=== PATIENT | male | born 1960 | race Caucasian/White ===

== ENCOUNTER 2017-01-31 16:04 | Emergency (ER) | payer OTHER, MEDICARE ==
[~2017-01-31] VITALS: Ht 180.3 cm; Wt 92.5 kg
--- NOTE | 2017-01-31 16:24 | ED PSYCHIATRIC COMPLAINT ---
History of Present Illness General Chief Complaint: ETOH/Drug Related Complaint Stated Complaint: ETOH Source: patient, EMS Exam Limitations: intoxication Vital Signs & Intake/Output Vital Signs & Intake/Output Vital Signs Date Time Temp Pulse Resp B/P B/P Pulse O2 O2 Flow FiO2 Mean Ox Delivery Rate 01/31 1618 97.8 85 18 166/110 99 Room Air Allergies Coded Allergies: animal dander (SNEEZING, EYES ITCH AND WATER 01/31/17) Reconcile Medications Albuterol Sulfate (Proventil Hfa) 90 MCG HFA.AER.AD 2 PUF INH PRN ASTHMA ( Reported) Atorvastatin Calcium (Lipitor) 80 MG TABLET 1 TAB PO DAILY CHOLESTEROL ( Reported) Budesonide/Formoterol Fumarate (Symbicort 160-4.5 Mcg Inhaler) 160 MCG-4.5 MCG/ ACTUATION HFA.AER.AD 2 PUF INH BID ASTHMA (Reported) Escitalopram Oxalate 20 MG TABLET 1 TAB PO DAILY MENTAL HEALTH (Reported) Fluticasone/Salmeterol (Advair 250-50 Diskus) 250 MCG-50 MCG/DOSE BLST.W.DEV 1 PUF INH BID ASTHMA (Reported) Gabapentin 300 MG CAPSULE 1 CAP PO BID RLS (Reported) Lisinopril/Hydrochlorothiazide (Lisinopril-Hctz 10-12.5 MG Tab) 10 MG-12.5 MG TABLET 1 TAB PO DAILY BP (Reported) Metoprolol Tartrate 25 MG TABLET 1 TAB PO BID HEART/BP (Reported) Montelukast Sodium 10 MG TABLET 1 TAB PO DAILY ALLERGIES (Reported) Pregabalin (Lyrica) 100 MG CAPSULE 1 CAP PO TID NEUROPATHY (Reported) Testosterone (Androgel) (Unknown Strength) GEL.PACKET 1 PAC TOP DAILY HRT ( Reported) Tofacitinib Citrate (Xeljanz) 5 MG TABLET 1 TAB PO BID RA (Reported) Triage Note: PT BIBA AFTER BEING FOUND SLEEPING ON THE SIDE OF THE ROAD. PT ADMITS TO ETOH USE, IS HERE VOLUNTARILY. PT DENIES SI/HI, DOES NOT WANT DETOX AT THIS TIME. Triage Nurses Notes Reviewed? yes Onset: Abrupt Duration: minute(s): (FEW) Timing: single episode today Severity: mild, moderate HPI: This is a 56-year-old male brought in by ambulance found with public intoxication. Patient states he drank 340 ounces today after getting out of his meeting with [employer]. He states he is not anxious, suicidal or homicidal. He wants to go home but he is intoxicated at this point. Patient states he does not have a sober ride. He does not drink everyday. Denies any illicit drug use. He does not want to speak to one of our crisis workers as he is doing okay. (FRANCISCO CASANOVA MD) Past History Travel History Traveled to [place] past 21 day No Medical History Any Pertinent Medical History? see below for history Psychiatric: anxiety, ALCOHOL ABUSE Surgical History Surgical History: non-contributory Psychosocial History What is your primary language Faroese Tobacco Use: Current Daily Use Daily Tobacco Use Amount/Type: => 5 Cigarettes daily ETOH Use: heavy use Family History Hx Contributory? No (FRANCISCO CASANOVA MD) Review of Systems Review of Systems Constitutional: Denies: fever. EENTM: Reports: no symptoms. Respiratory: Reports: no symptoms. Cardiovascular: Denies: chest pain. GI: Denies: see HPI. Genitourinary: Reports: no symptoms. Musculoskeletal: Reports: no symptoms. Skin: Reports: no symptoms. Neurological/Psychological: Denies: anxiety, depressed. Hematologic/Endocrine: Reports: no symptoms. Immunologic/Allergic: Reports: no symptoms. All Other Systems: Reviewed and Negative (FRANCISCO CASANOVA MD) Physical Exam Physical Exam General Appearance: well developed/nourished, awake, anxious, mild distress, intoxicated Head: atraumatic Eyes: Bilateral: PERRL, EOMI. Ears, Nose, Throat: normal pharynx, normal ENT inspection, hearing grossly normal Neck: normal inspection, supple Respiratory: normal breath sounds Cardiovascular: regular rate/rhythm Gastrointestinal: soft, non-tender Extremities: normal range of motion Neurological/Psychiatric: no motor/sensory deficits, awake, alert, calm Appearance/Memory/Insight: disheveled Behavoir/Eye Contact/Speech: decreased rate of speech Skin: intact, normal color, warm/dry SAD PERSONS Done? patient not suicidal (FRANCISCO CASANOVA MD) Progress Differential Diagnosis: ALCOHOL INTOXICATION Plan of Care: Current Medications Sig/Jay Start time Last Medication Dose Stop Time Status Admin Acetaminophen 650 MG ONCE ONE 01/31 1915 UNVr (Tylenol) 02/01 1916 Hand-Off Endorsed To: VICK BOJORQUEZ MD Endorsed Time: 1907 Pending: other (REEVALUATION/SOBRIETY) (TERRENCE DOMÍNGUEZ,FRANCISCO) Comments: 01/31/2017 10:48:42 PM patient signed out to me by Dr. Casanova at shift manager of change. The patient is now clinically sober and his breathalyzer confirms sobriety. I feel he is stable for discharge. Patient declined any further evaluation and treatment in the emergency department. (CARINA DOMÍNGUEZ,VICK Littlejohn) Departure Departure Condition: Stable Referrals: ANTHONY DOMÍNGUEZ,YURI Tucker (PCP) Departure Forms: Customer Survey General Discharge Information (TERRENCE DOMÍNGUEZ,FRANCISCO) Departure Disposition: HOME OR SELF CARE Clinical Impression Primary Impression: Alcohol intoxication Qualifiers: Complication of substance-induced condition: uncomplicated Qualified Code: F10.920 - Alcohol use, unspecified with intoxication, uncomplicated Additional Instructions: Cut down on your alcohol use. Follow-up with your primary care physician this week for general medical evaluation. Return if any concerns or sudden worsening. Thank you for choosing the [facility] Emergency Department for your care. It was a pleasure to serve you today. Vick Bojorquez M.D. [facility] (CARINA DOMÍNGUEZ,VICK Littlejohn)
[2017-01-31] MEDS ORDERED: PROVENTIL HFA6.7 GM INH (16:35)
[2017-01-31] MEDS ORDERED: MONTELUKAST SOD10 M1 PO (16:35)
[2017-01-31] MEDS ORDERED: LISINOPRIL-HCT1 EAC2 PO (16:36)
[2017-01-31] MEDS ORDERED: METOPROLOL TART25 M1 PO (16:36)
[2017-01-31] MEDS ORDERED: LIPITOR80 M1 PO (16:37)
[2017-01-31] MEDS ORDERED: SYMBICORT 16010.2 GM INH (16:37)
[2017-01-31] MEDS ORDERED: GABAPENTIN300 M2 PO (16:37)
[2017-01-31] MEDS ORDERED: ESCITALOPRAM OX20 MG PO (16:37)
[2017-01-31] MEDS ORDERED: XELJANZ5 M1 PO (16:37)
[2017-01-31] MEDS ORDERED: ADVAIR 250-501 EACH INH (16:38)
[2017-01-31] MEDS ORDERED: ANDROGEL5 GM TOP (16:41)
[2017-01-31] MEDS ORDERED: LYRICA100 M1 PO (16:41)
[2017-01-31 23:06] VITALS: BP 157/98
== END 2017-01-31 23:07 ==
LOC: ERH 16:04
DX: F10.129 Alcohol abuse with intoxication, unspecified (principal)

== ENCOUNTER 2017-03-01 12:35 | Emergency (ER) | payer OTHER, MEDICARE ==
[~2017-03-01] VITALS: Ht 180.3 cm; Wt 91.6 kg
[~2017-03-01 12:35] MED LIST: ADVAIR 250-501 EACH INH; ANDROGEL5 GM TOP; ESCITALOPRAM OX20 MG PO; GABAPENTIN300 M2 PO; LIPITOR80 M1 PO; LISINOPRIL-HCT1 EAC2 PO; LYRICA100 M1 PO; METOPROLOL TART25 M1 PO; MONTELUKAST SOD10 M1 PO; PROVENTIL HFA6.7 GM INH; SYMBICORT 16010.2 GM INH; XELJANZ5 M1 PO
--- NOTE | 2017-03-01 12:58 | ED GENERAL ADULT ---
History of Present Illness General Chief Complaint: General Adult Stated Complaint: HIGH BP Source: patient Exam Limitations: no limitations Vital Signs & Intake/Output Vital Signs & Intake/Output ED Intake and Output 03/02 0000 03/01 1200 Intake Total 0 Output Total Balance 0 Intake, Oral 0 Patient 202 lb Weight Weight Reported by Patient Measurement Method Allergies Coded Allergies: animal dander (SNEEZING, EYES ITCH AND WATER 01/31/17) Reconcile Medications Albuterol Sulfate (Proventil Hfa) 90 MCG HFA.AER.AD 2 PUF INH PRN ASTHMA ( Reported) Atorvastatin Calcium (Lipitor) 80 MG TABLET 1 TAB PO DAILY CHOLESTEROL ( Reported) Budesonide/Formoterol Fumarate (Symbicort 160-4.5 Mcg Inhaler) 160 MCG-4.5 MCG/ ACTUATION HFA.AER.AD 2 PUF INH BID ASTHMA (Reported) Escitalopram Oxalate 20 MG TABLET 1 TAB PO DAILY MENTAL HEALTH (Reported) Etodolac 300 MG CAPSULE 1 TAB PO BID UNKNOWN (Reported) Fluticasone/Salmeterol (Advair 250-50 Diskus) 250 MCG-50 MCG/DOSE BLST.W.DEV 1 PUF INH BID ASTHMA (Reported) Gabapentin 300 MG CAPSULE 1 CAP PO BID PRN RESTLESS LEGS (Reported) Lisinopril 10 MG TABLET 1 TAB PO DAILY HTN Lisinopril/Hydrochlorothiazide (Lisinopril-Hctz 10-12.5 MG Tab) 10 MG-12.5 MG TABLET 1 TAB PO DAILY BP (Reported) Metoprolol Succinate 25 MG TAB 1 TAB PO BID HTN Metoprolol Tartrate 25 MG TABLET 1 TAB PO BID HEART/BP (Reported) Montelukast Sodium 10 MG TABLET 1 TAB PO DAILY ALLERGIES (Reported) Pregabalin (Lyrica) 100 MG CAPSULE 1 CAP PO TID NEUROPATHY (Reported) Testosterone (Androgel) (Unknown Strength) GEL.PACKET 1 PAC TOP DAILY HRT ( Reported) Tofacitinib Citrate (Xeljanz) 5 MG TABLET 1 TAB PO BID RA (Reported) Triage Note: PT SIB [facility] FOR DIZZINESS AND HTN, PT REPORTING HE HAS BEEN FEELING DIZZY FOR TWO MONTHS, HAS HAD AN MRI AND F/U WITH NEURO AND "THEY SAID ITS NOTHING" HTN IN TRIAGE AT 169/100, REPORTING HE IS SUPPOSED TO TAKE LISINOPRIL "BUT I HAVEN'T TAKEN IT IN OVER A YEAR" DENIES CP, SOB, CARREON. Triage Nurses Notes Reviewed? yes Onset: Gradual Duration: FEW MONTHS Timing: recent history Injury Environment: home Severity: mild Associated Symptoms: DIZZINESS, OCCASIONAL SHORTNESS OF BREATH WITH EXERTION HPI: This is a very nice 56-year-old male with history of hypertension, dyslipidemia, previous ME, asthma who presents to the ER for chief complaint of dizziness. Patient's blood pressure has been running high and today when he went to see Dr. Gómez after 4 years found to be hypertensive with a systolic over 180. Patient denies any chest pain or shortness of breath at this time. He has been trying to get back to seeing all the primary doctors after several years of not taking care of himself. He states he went for a period of depression after losing his house, he was left him as well as his son was dealing with drug issues and stopped taking his regular medications. He has not taken his blood pressure medications in over one year. He used to take lisinopril, metoprolol and possibly hydrochlorothiazide. He states he is due to see a client architect at the end of this week as well. States that he gets short of breath while walking his eye or climbing stairs. No shortness of breath at rest. Any history of smoking. States he drinks once per month. Denies any illicit drug use. Past History Travel History Traveled to [place] past 21 day No Medical History Any Pertinent Medical History? see below for history Neurological: NONE EENT: SEASONAL ALLERGIES Cardiovascular: hypertension, myocardial infarction, HIGH CHOLESTEROL Respiratory: asthma Musculoskeletal: RHEUMATOID ARTHRITIS Psychiatric: anxiety, ALCOHOL ABUSE Surgical History Surgical History: LEFT INGUINAL HERNIA REPAIR, CARDIAC CATH - 2 ARTERIES BLOCKED , UNABLE TO BE STENTED Psychosocial History What is your primary language Liberian Tobacco Use: Never used ETOH Use: occasional use, heavy use, alcoholic Illicit Drug Use: denies illicit drug use Family History Hx Contributory? No Review of Systems Review of Systems Constitutional: Denies: chills, fever. EENTM: Denies: blurred vision. Respiratory: Reports: short of breath (WITH EXERTION). Denies: cough, sputum production. Cardiovascular: Denies: chest pain, palpitations, peripheral edema. GI: Denies: abdominal pain, diarrhea, nausea, vomiting. Genitourinary: Denies: discharge, dysuria. Musculoskeletal: Denies: back pain. Skin: Reports: no symptoms. Neurological/Psychological: Reports: see HPI (DIZZY). Denies: ataxia, confusion, headache, numbness, paresthesia. Hematologic/Endocrine: Denies: bruising, bleeding, polyuria, polydipsia. Immunologic/Allergic: Reports: no symptoms. All Other Systems: Reviewed and Negative Physical Exam Physical Exam General Appearance: well developed/nourished, alert, awake, anxious, mild distress Head: atraumatic, normal appearance Eyes: Bilateral: normal appearance, PERRL, EOMI. Ears, Nose, Throat: normal pharynx, normal ENT inspection, hearing grossly normal Neck: normal inspection, supple, full range of motion Respiratory: normal breath sounds, chest non-tender, no respiratory distress Cardiovascular: regular rate/rhythm Peripheral Pulses: 2+ radial (R), 2+ radial (L) Gastrointestinal: normal bowel sounds, soft, non-tender Back: normal inspection, normal range of motion Extremities: normal inspection, normal capillary refill, normal range of motion, no edema Neurologic/Psych: no motor/sensory deficits, awake, alert, oriented x 3, normal gait, normal mood/affect Skin: intact, normal color, warm/dry Core Measures ACS in differential dx? Yes ASA ordered for poss ACS? Yes-ordered CVA/TIA Diagnosis: No Severe Sepsis Present: No Septic Shock Present: No Progress Differential Diagnoses I considered the following diagnoses in my evaluation of the patient: [ UNCONTROLLED HTN, MEDICATION NON COMPLIANCE, DEPRESSION, ACS, UNSTABLE ANGINA, ASTHMA, ANXIETY] Plan of Care: Orders Procedure Date/time Status Heart Healthy Diet 03/01 D Active URINALYSIS 03/01 1305 Active TROPONIN LEVEL 03/01 1305 Complete COMPREHENSIVE METABOLIC PANEL 03/01 1305 Complete CBC WITHOUT DIFFERENTIAL 03/01 1305 Complete EKG 03/01 1258 Active Laboratory Tests 03/01/17 1314: Anion Gap 7, Estimated GFR > 60, BUN/Creatinine Ratio 21.3, Glucose 103 H, Calcium 9.4, Total Bilirubin 0.7, AST 19, ALT 35, Alkaline Phosphatase 117, Troponin I < 0.01, Total Protein 7.1, Albumin 4.2, Globulin 2.9, Albumin/ Globulin Ratio 1.4, CBC w Diff NO MAN DIFF REQ, RBC 5.45, MCV 87.1, MCH 29.8, RDW 13.8, MPV 6.6 L, Gran % 73.2, Lymphocytes % 16.9 L, Monocytes % 6.2, Eosinophils % 3.4, Basophils % 0.3, Absolute Granulocytes 4.7, Absolute Lymphocytes 1.1 L, Absolute Monocytes 0.4, Absolute Eosinophils 0.2, Absolute Basophils 0, PUBS MCHC 34.2 EKG, TELE MONITOR, LABS. ASPIRIN, LISINOPRIL ORDERED. NO CHEST PAIN TODAY. TROPONIN NEGATIVE, IMPROVED BLOOD PRESSURE. PATIENT ASYMPTOMATIC. PATIENT HAS APPOINTMENT WITH PCP TOMORROW AND WITH [employer] DEVELOPER ON MONDAY. WILL RETURN TO THE ER FOR ANY CHANGING OR WORSENING SYMPTOMS. (TERRENCE DOMÍNGUEZ,FRANCISCO) Initial ED EKG: NSR, LAD, INF Q Prior EKG: changed Departure Departure Time of Disposition: 1512 Disposition: HOME OR SELF CARE Condition: Stable Clinical Impression Primary Impression: Hypertension Referrals: ANTHONY DOMÍNGUEZ,YURI Tucker (PCP/Family) Additional Instructions: TAKE THE LISINOPRIL AND METOPROLOL DIRECTED AND FOLLOW UP WITH YOUR PCP APPOINTMENT TOMORROW AND YOUR CARDIOLOGY APPOINTMENT ON MONDAY. RETURN IF WORSE TO THE ER. Departure Forms: Customer Survey General Discharge Information Prescriptions: Current Visit Scripts Lisinopril 1 TAB PO DAILY #30 TAB Metoprolol Succinate 1 TAB PO BID #30 TAB Critical Care Note Critical Care Note Critical Care Time: non-applicable
[2017-03-01 13:21] LABS: ABSOLUTE BASOPHIL COUNT 0 /CUMM (0.0-0.2); ABSOLUTE EOSINOPHIL COUNT 0.2 /CUMM (0.0-0.7); ABSOLUTE GRANULOCYTE CT 4.7 /CUMM (1.4-6.5); ABSOLUTE LYMPH COUNT 1.1 /CUMM (1.2-3.4); ABSOLUTE MONOCYTE COUNT 0.4 /CUMM (0.10-0.60); BASOPHIL % 0.3 % (0.0-2.0); EOSINOPHIL % 3.4 % (0-5); GRANULOCYTE % 73.2 % (42.2-75.2); HEMATOCRIT 47.5 % (42-52); MEAN CORPUSCULAR HGB 29.8 PG (27.0-31.0); MEAN CORPUSCULAR HGB CONC 34.2 G/DL (33.0-37.0); MEAN CORPUSCULAR VOLUME 87.1 FL (80.0-94.0); MEAN PLATELET VOLUME 6.6 FL (7.4-10.4); PLATELET COUNT 272 /CUMM (130-400); RBC DISTRIBUTION WIDTH 13.8 % (11.5-14.5); RED BLOOD CELL CT 5.45 /CUMM (4.70-6.10); WHITE BLOOD CELL COUNT 6.4 /CUMM (4.8-10.8)
[2017-03-01] MEDS ORDERED: ETODOLAC300 M1 PO (14:04)
[2017-03-01 14:47] VITALS: BP 159/93
[2017-03-01] MEDS ORDERED: METOPROLOL SUCC25 M1 PO ×2 (15:15→15:16)
[2017-03-01] MEDS ORDERED: LISINOPRIL10 M1 PO ×2 (15:15→15:16)
== END 2017-03-01 15:50 ==
LOC: ERH 12:35
PROVIDERS: Emergency Medicine
DX: I10 Essential (primary) hypertension (principal)
CPT/HCPCS: 93005; 93010; J3490